=== PATIENT | male | born 1995 | race Caucasian/White ===

== ENCOUNTER 2018-12-02 | Emergency (ER) | payer OTHER ==
[~2018-12-02] MED LIST: ANTIBIOTIC1 CR1 PO; CYCLOBENZAPRINE10 MG PO; MOTRIN800 MG PO; Motrin,Rufen800 MG PO; NKHM
[2018-12-02 16:03] LABS: BILIRUBIN NEGATIVE (NEGATIVE); BLOOD 1+ (NEGATIVE); CLARITY CLOUDY (CLEAR); COLOR YELLOW (YELLOW); GLUCOSE NEGATIVE (NEGATIVE); KETONE NEGATIVE (NEGATIVE); LEUKO ESTERASE 2+ (NEGATIVE); NITRITE NEGATIVE (NEGATIVE); SPECIFIC GRAVITY 1.025 (1.005-1.030); UROBILINOGEN 0.2 E.U./dl (0.2-1.0)
[2018-12-02 16:13] LABS: RBC TNTC rbc/hpf (0-2); WBC TNTC wbc/hpf (0-5)
[2018-12-02] MEDS ORDERED: CEFUROXIME AXE500 MG PO (16:20)
== END 2018-12-02 16:39 | disposition home or self-care (01) ==
PROVIDERS: Nurse Practitioner Family
DX: N39.0 Urinary tract infection, site not specified (principal); F17.200 Nicotine dependence, unspecified, uncomplicated; Z11.3 Encounter for screening for infections with a predominantly sexual mode of transmission; Z79.899 Other long term (current) drug therapy

== ENCOUNTER 2021-05-22 23:07 | Emergency (ER) | payer OTHER ==
[~2021-05-22] VITALS: Ht 180.3 cm; Wt 63.5 kg
[~2021-05-22 23:07] MED LIST changes: +CEFUROXIME AXE500 MG PO
[2021-05-22 23:20] VITALS: BP 123/81
[2021-05-23 01:34] LABS: BILIRUBIN 1+ (Negative); BLOOD Negative (Negative); CLARITY Turbid (Clear); COLOR Dark Yellow (Yellow); GLUCOSE Negative (Negative); KETONE Trace (Negative); LEUKO ESTERASE 3+ (Negative); NITRITE Negative (Negative); SPECIFIC GRAVITY >= 1.030 (1.001-1.030)
[2021-05-23 01:45] LABS: PH >= 9.0 (4.5-8.0)
[2021-05-23 01:46] LABS: BACTERIA 1+; WBC 41-50 wbc/hpf (0-5)
[2021-05-23] MEDS ORDERED: CEPHALEXIN500 M1 PO (02:46)
== END 2021-05-23 03:10 | disposition home or self-care (01) ==
LOC: ED 23:07
PROVIDERS: Emergency Medicine
DX: N39.0 Urinary tract infection, site not specified (principal); Z20.2 Contact with and (suspected) exposure to infections with a predominantly sexual mode of transmission

== ENCOUNTER 2021-06-18 20:33 | Emergency (ER) | payer OTHER ==
[~2021-06-18 20:33] MED LIST changes: +CEPHALEXIN500 M1 PO
[2021-06-18 20:50] VITALS: BP 124/78
== END 2021-06-18 21:15 | disposition home or self-care (01) ==
LOC: ED 20:33
DX: Z20.2 Contact with and (suspected) exposure to infections with a predominantly sexual mode of transmission (principal); F17.200 Nicotine dependence, unspecified, uncomplicated; Z79.2 Long term (current) use of antibiotics; Z79.899 Other long term (current) drug therapy

== ENCOUNTER 2022-02-14 14:20 | Inpatient (IN) | payer OTHER ==
[~2022-02-14] VITALS: Ht 180 cm; Wt 67.3 kg
[2022-02-14 14:27] VITALS: BP 134/90
[2022-02-14 15:10] LABS: BASO % 0.3 % (0.0-1.0); EOS # 0.1 10*3/uL (0.0-0.4); EOS % 1.8 % (1.0-4.0); HEMATOCRIT 42.1 % (42.0-52.0); LYMPH # 2.4 10*3/uL (1.3-4.4); LYMPH % 36.4 % (27.0-41.0); MEAN CELL VOLUME 82.7 fl (80.0-94.0); MEAN CORPUSCULAR HGB 28.7 pg (27.0-31.0); MEAN CORPUSCULAR HGB CONC 34.7 g/dl (33.0-37.0); MEAN PLATELET VOLUME 10.3 fl (9.6-12.3); MONO # 0.5 10*3/uL (0.1-1.0); NEUT # 3.5 10*3/uL (2.3-7.9); NEUT % 53.2 % (47.0-73.0); PLATELET COUNT AUTOMATED 225 10*3/uL (130-400); RED BLOOD COUNT 5.09 10*6/uL (4.50-5.90); RED CELL DISTRI WIDTH 12.3 % (0-14.5); WHITE BLOOD COUNT 6.5 10*3/uL (4.8-10.8)
[2022-02-14 15:25] LABS: BILIRUBIN Negative (Negative); BLOOD Negative (Negative); CLARITY Clear (Clear); COLOR Yellow (Yellow); GLUCOSE Negative (Negative); KETONE Trace (Negative); LEUKO ESTERASE Negative (Negative); NITRITE Negative (Negative); SPECIFIC GRAVITY 1.025 (1.001-1.030)
[2022-02-14 15:30] LABS: ALKALINE PHOSPHATASE 107 U/L (45-117); BUN 14 mg/dl (7-24); CHLORIDE 105 mmol/L (98-107); CREATININE 0.92 mg/dL (0.70-1.30); POTASSIUM 3.8 mmol/L (3.5-5.1); SGOT/AST 14 IU/L (3-35); SGPT/ALT 21 U/L (12-78); SODIUM 137 mmol/L (136-145); TOTAL PROTEIN 7.7 gm/dL (6.4-8.2)
[2022-02-14 15:31] LABS: ETHYL ALCOHOL < 3.0 mg/dl (<3)
[2022-02-14 15:39] LABS: URINE AMPHETAMINES < 1000 (1000ng/ml); URINE BARBITURATES < 200 (200ng/ml); URINE BENZODIAZEPINES < 200 (200ng/ml); URINE COCAINE < 300 (300ng/ml); URINE METHADONE < 300 (300ng/ml); URINE OPIATES < 300 (300ng/ml)
[2022-02-14 15:43] LABS: URINE CANNABINOIDS (THC) > 50 (50ng/ml)
[2022-02-14] MEDS ORDERED: BUPRENORPHINE-1 EAC1 SL (15:43)
[2022-02-14 15:47] LABS: URINE PHENCYCLIDINE < 25 (25ng/ml)
[2022-02-14 15:58] LABS: BACTERIA 1+; CALCIUM OXALATE CRYSTALS 1+; EPITHELIAL CELLS 0-2; MUCOUS 2+; RBC 0-2 rbc/hpf (0-2)
[2022-02-14 16:00] VITALS: BP 109/89
[2022-02-14 20:00] VITALS: BP 111/68
[2022-02-15] VITALS: BP 109/66
[2022-02-15 08:00] VITALS: BP 110/76
[2022-02-15 12:00] VITALS: BP 120/69
== END 2022-02-15 13:04 | disposition left against medical advice (07) | DRG 770 ==
LOC: ED 14:20 → EDHOLD 15:28 → 4E 15:28
PROVIDERS: Emergency Medicine; ADMIT Emergency Medicine; ATTEND Emergency Medicine
DX: F11.23 Opioid dependence with withdrawal (principal); Z53.29 Procedure and treatment not carried out because of patient's decision for other reasons; F17.210 Nicotine dependence, cigarettes, uncomplicated; Z71.6 Tobacco abuse counseling; F19.10 Other psychoactive substance abuse, uncomplicated; R09.89 Other specified symptoms and signs involving the circulatory and respiratory systems; R05.9 Cough, unspecified; R00.0 Tachycardia, unspecified

== ENCOUNTER 2022-10-06 13:15 | Emergency (ER) | payer OTHER ==
[~2022-10-06] VITALS: Wt 76.2 kg
[~2022-10-06 13:15] MED LIST changes: +BUPRENORPHINE-1 EAC1 SL
[2022-10-06 13:41] VITALS: BP 119/77
== END 2022-10-06 15:25 | disposition left against medical advice (07) ==
LOC: ED 13:15
DX: Z53.21 Procedure and treatment not carried out due to patient leaving prior to being seen by health care provider (principal)

== ENCOUNTER 2022-10-08 14:04 | Emergency (ER) | payer OTHER | END 2022-10-08 14:26 | disposition left against medical advice (07) | LOC: ED 14:04 | DX: R31.9 Hematuria, unspecified (principal); Z53.21 Procedure and treatment not carried out due to patient leaving prior to being seen by health care provider ==

== ENCOUNTER 2023-01-26 09:59 | Emergency (ER) | payer OTHER ==
[~2023-01-26] VITALS: Wt 75.7 kg
[2023-01-26 10:20] VITALS: BP 131/85
[2023-01-26 11:25] LABS: BILIRUBIN Negative (Negative); BLOOD Negative (Negative); CLARITY Cloudy (Clear); COLOR Yellow (Yellow); GLUCOSE Negative (Negative); KETONE Trace (Negative); LEUKO ESTERASE 2+ (Negative); NITRITE Negative (Negative); PH 7.5 (4.5-8.0); SPECIFIC GRAVITY 1.025 (1.001-1.030)
[2023-01-26] MEDS ORDERED: Ondansetron4 MG PO (11:32)
[2023-01-26] MEDS ORDERED: CEPHALEXIN500 M1 PO (11:32)
[2023-01-26 11:43] LABS: BACTERIA 2+; WBC TNTC wbc/hpf (0-5)
[2023-01-26 11:44] LABS: EPITHELIAL CELLS 0-2
== END 2023-01-26 11:51 | disposition home or self-care (01) ==
LOC: ED 09:59
PROVIDERS: Internal Medicine
DX: R11.2 Nausea with vomiting, unspecified (principal); R31.9 Hematuria, unspecified; R30.0 Dysuria; F17.200 Nicotine dependence, unspecified, uncomplicated